=== PATIENT | male | born 1975 | race Caucasian/White ===

== ENCOUNTER 2020-11-05 01:03 | Emergency (ER) | payer SELFPAY ==
[~2020-11-05] VITALS: Ht 167.6 cm; Wt 72.0 kg
[2020-11-05 01:20] VITALS: BP 124/82
== END 2020-11-05 01:46 | disposition home or self-care (01) ==
LOC: ER 01:03
DX: Z72.89 Other problems related to lifestyle (principal)
CPT/HCPCS: 82962; 99283